=== PATIENT | male | born 1985 ===

== ENCOUNTER 2019-01-20 11:37 | Outpatient (CLI) | payer OTHER ==
[~2019-01-20 11:37] MED LIST: ALLEGRA ALLERG180 MG PO; FLONASE16 GM NS; GILTUSS TR TAB1 EACH PO
== END 2019-01-20 11:49 | disposition home or self-care (01) ==
LOC: LAB 11:37
DX: A49.3 Mycoplasma infection, unspecified site (principal); J11.1 Influenza due to unidentified influenza virus with other respiratory manifestations